=== PATIENT | male | born 1965 | race Hispanic/Latino ===

== ENCOUNTER 2017-12-11 18:24 | Inpatient (IN) | payer MEDICARE, MEDICAID ==
--- NOTE | 2017-12-11 18:33 | ED PDOC ---
Psych Transfer Clearance - Clearance Statement Clearance Statement: Reviewed vital signs, lab results and transfer papers. Patient clinically stable for psychiatric admission.
[2017-12-11 18:44] VITALS: O2SAT 97
[2017-12-11] MEDS ORDERED: Magnesium Hydroxide Susp 30 ml UD PO PRN (19:43)
[2017-12-11] MEDS ORDERED: DiphenhydrAMINE 50 mg/ml Inj IM PRN (19:43)
[2017-12-11] MEDS ORDERED: Alum-Mag Hydrox-Simethicone Susp (30 mL) PO PRN (19:43)
--- NOTE | 2017-12-11 20:22 | PCM.BM ---
<Frank Gordon - Last Filed: 12/11/17 20:19> Treatment Plan Problems - Problems identified on initial assessmt Auditory Hallucinations Date Initiated: 12/11/17 Time Initiated: 20:19 Assessment reference: NA Status: Active Altered Thought Process Date Initiated: 12/11/17 Time Initiated: 20:20 Assessment reference: NA Status: Active Ineffective Coping Date Initiated: 12/11/17 Time Initiated: 20:20 Assessment reference: NA Status: Active Anxiety Date Initiated: 12/11/17 Time Initiated: 20:21 Assessment reference: NA Status: Active Treatment assets and liabiliti Patient Assests: cooperative, good support system, negotiates basic needs Patient Liabilities: medical problems - Milieu Protocol Maintain good personal hygiene: every shift Encourage regular showers, every shift Remind patient to perform daily oral care, every shift Assist patient to perform ADL's Maintain personal safety: daily Educate patient to report safety concerns to staff, daily Monitor environment for contraband/sharps Medication safety: Monitor for expected outcome, potential side effects: daily, Assess barriers to learning: daily, Assess readiness for medication education: daily <Lina Merrill - Last Filed: 12/12/17 10:23> - Diagnosis (1) Schizophrenia Status: Acute Interventions: Medication management, Individual and group therapy, Psychoeducation 12/12/17 10:24 <Viola De León - Last Filed: 12/13/17 11:57> Family Contact Family contact: Patient agrees to contact, Family has been contacted by patient , Telephone contact initiated by staff Family contact name: Koko Mansfield - cousin Family contacted how many times per week?: 2 - Outside Agency [facility], [facility] Care involvment: Information-sharing Agency contact name: Dr. Magali MD - psychiatrist. Catherine- RN Agency contact number: [phone] - Goals for Treatment Patient goals for treatment: Pt to be encouraged to attend activity and clinical groups 3-5x per week to decrease symptoms of paranoia, delusions and employ reality testing. Pt to be encouraged to participate in group milieu to develop coping skills to reduce psychiatric hospitalizations and further decompensation. Coordinate discharge resources needs by providing referral for psychiatric treatment follow up in the community. Discharge/Continuing Care - Education Needs Education Needs: Family Medication, Family Diagnosis/Disease Process, Family Coping Skills, Family Placement options, Family Activities of Daily Living, Family Health Practices/Safety, Family Personal Hygiene/Grooming, Family Aftercare Safety Plan, Patient Medication, Patient Diagnosis/Disease Process, Patient Coping Skills, Patient Placement options, Patient Activities of Daily Living, Patient Health Practices/Safety, Patient Personal Hygiene/Grooming, Patient Aftercare Safety Plan - Discharge Discharge Criteria: Tolerates medication w/o severe side effects, Free of paranoid thoughts, Normal sleep pattern, Ability to care for self, Reduction of target symptoms Discharge to:: Detention Facility - Additional Comments 12/13/17 11:49 Pt seen and discussed in team meeting. Reason for admission reviewed and discussed. Pt provided a brief explanation as to why he was referred to [facility] for evaluation. Pt reported reason for ED visit as "i was bleeding form my rectum." Pt continued to state "something bad inside me" and "someone really f me up." Pt unable to explain what was inside him and why someone was trying to hurt him. Pt presented with thought blocking, poverty of speech and delayed responses. Pt reported that the auditory hallucinations are ' slightly better." Pt refused to state what he was hearing. Pt's social and medical issues reviewed. Pt's medications reviewed and discussed. Pt is agreeable to Risperdal being increased. Please refer to MD progress note for additional information. Tx plan reviewed and discussed. Pt verbalized agreement. SW to continue to follow case.
[2017-12-12 02:48] LABS: SQUAMOUS EPITHIAL < 1 /hpf (0-5); URINE BACTERIA RARE (<OCC); URINE BILIRUBIN NEGATIVE (NEGATIVE); URINE BLOOD MODERATE (NEGATIVE); URINE CLARITY CLEAR (Clear); URINE COLOR STRAW (YELLOW); URINE GLUCOSE (UA) NEG (Normal); URINE LEUKOCYTE ESTERASE NEG Leu/uL (Negative); URINE PROTEIN NEGATIVE (NEGATIVE); URINE UROBILINOGEN 0.2-1.0 mg/dL (0.2-1.0)
[2017-12-12 06:01] LABS: BASO # 0.1 K/uL (0.0-0.2); BASO % 0.6 % (0.0-2.0); EOS # 0.2 K/uL (0.0-0.7); EOS % 1.5 % (0.0-4.0); HEMOGLOBIN 11.8 g/dL (12.0-18.0); LYMPH # 3.1 K/uL (1.0-4.3); MEAN CELL VOLUME 92.2 fl (80.0-94.0); MEAN CORPUSCULAR HEMOGLOBIN 31.3 pg (27.0-31.0); MEAN CORPUSCULAR HGB CONC 33.9 g/dL (33.0-37.0); MEAN PLATELET VOLUME 7.4 fl (7.2-11.7); MONO % 8.9 % (0.0-10.0); NEUT # 7.2 K/uL (1.8-7.0); RBC 3.76 Mil/uL (4.40-5.90); RED CELL DISTRIBUTION WIDTH 14.8 % (11.5-14.5); WHITE BLOOD COUNT 11.6 K/uL (4.8-10.8)
[2017-12-12 06:14] LABS: ALB/GLOB RATIO 1.5 (1.0-2.1); ALT/SGPT 35 U/L (21-72); AST/SGOT 25 U/L (17-59); BLOOD UREA NITROGEN 23 mg/dl (9-20); CALCIUM 9.3 mg/dL (8.4-10.2); GFR NON-AFRICAN AMERICAN 53; HDL CHOLESTEROL 30 MG/DL (30-70)
[2017-12-12 06:22] LABS: T4 6.66 ug/dl (5.5-11.0)
[2017-12-12 06:25] LABS: LDL CHOLESTEROL 92 mg/dL (0-129)
--- NOTE | 2017-12-12 08:26 | PCM.PSYCH ---
Initial Psychiatric Evaluation - Initial Psychiatric Evaluation Type of Admission: Voluntary Legal Status: Capacity Chief Complaint (in patient's own words): Paranoia/ Auditory Hallucinations Patient's Reaction to Hospitalization: HPI: 52 yo male w/ h/o schizophrenia, presents w/ worsening paranoia and auditory hallucinations. +Anxiety +Sleep/appetite disturbances +Mood lability. NO SI/HI. PPHx: H/o of multiple psychiatric admissions; current treatment w/ Risperdal 3 mg PO BID; Trazodone 50 mg PO HS; Klonopin 1 mg PO TID PMHx: Bowel obstruction s/p exploratory laparotomy 07/07, rhabdomyolysis w/ renal failure and temporary dialysis discontinued 09/06 ALL: Fish, Seafood SHx: Smokes 1ppd; lives at [facility], no drugs/etoh Current Medications: Active Medications Generic Name Dose Route Start Last Admin Trade Name Freq PRN Reason Stop Dose Admin Acetaminophen 650 mg 12/11/17 19:43 12/12/17 00:38 Tylenol 325mg Tab PO 650 mg Q4 PRN Administration Pain, moderate (4-7) Al Hydrox/Mg Hydrox/Simethicone 30 ml 12/11/17 19:43 Maalox Plus 30 Ml PO Q4 PRN Dyspepsia Amlodipine Besylate 5 mg 12/12/17 09:00 Norvasc PO DAILY WILBERTO Aspirin 81 mg 12/12/17 09:00 Aspirin Chewable PO DAILY WILBERTO Diphenhydramine HCl 50 mg 12/11/17 19:43 Benadryl IM Q6 PRN Extrapyramidal S/S Unable PO Diphenhydramine HCl 50 mg 12/11/17 19:43 Benadryl PO Q6 PRN Extrapyramidal Symptoms Diphenhydramine HCl 50 mg 12/11/17 19:48 12/11/17 21:14 Benadryl PO 50 mg HS PRN Administration Sleep Haloperidol 5 mg 12/11/17 19:43 Haldol PO Q4 PRN Agitation Haloperidol Lactate 5 mg 12/11/17 19:43 Haldol IM Q4 PRN Agitation, Unable to Take PO Home Med 15 ml 12/12/17 09:00 Chlorhexidine Gluconate [Peridex] PO BID WILBERTO Lorazepam 1 mg 12/11/17 19:43 12/11/17 22:24 Ativan PO 1 mg Q8 PRN Administration Anxiety/Agitation Magnesium Hydroxide 30 ml 12/11/17 19:43 Milk Of Magnesia PO HS PRN Constipation Metoprolol Succinate 50 mg 12/12/17 09:00 Toprol Xl PO DAILY [facility] Montelukast Sodium 10 mg 12/12/17 09:00 Singulair PO DAILY [facility] Polyethylene Glycol 17 gm 12/12/17 22:00 Miralax PO HS [facility] Past Psychiatric History - Past Psychiatric History Previous Treatment History: Inpatient Pertinent Medical Hx (Current Medical&Sleep Prob, Allergies): Allergies Allergy/AdvReac Type Severity Reaction Status Date / Time FISH Allergy URTICARIA Verified 12/11/17 18:26 seafood Allergy URTICARIA Uncoded 12/11/17 18:26 Albuterol/Ipratropium [Duoneb 3 mg/0.5 mg (3 ml) UD] 3 mg PO BID 12/11/17 Aspirin [Aspirin Chewable] 81 mg PO DAILY 12/11/17 Chlorhexidine Gluconate [Peridex] 15 ml PO BID 12/11/17 Gabapentin [Neurontin] 600 mg PO HS 12/11/17 Metoprolol Succinate XL [Toprol XL] 50 mg PO DAILY 12/11/17 Montelukast Sodium [Singulair] 10 mg PO DAILY 12/11/17 Polyethylene Glycol 3350 [Miralax] 17 gm PO HS 12/11/17 amLODIPine [Norvasc] 5 mg PO DAILY 12/11/17 clonazePAM [clonAZEPAM] 1 mg PO TID 12/11/17 risperiDONE [RisperDAL] 3 mg PO BID 12/11/17 traZODone [Desyrel] 50 mg PO HS PRN 12/11/17 Review of Systems - Psychiatric Psychiatric: Abnormal Sleep Pattern, Anxiety, Auditory Hallucinations, Behavioral Changes, Change in Appetite, Difficulty Concentrating, Irritability, Paranoia Mental Status Examination - Personal Presentation Personal Presentation: Looks stated age - Affect Affect: Constricted - Motor Activity Motor Activity: Calm - Reliability in Providing Information Reliability in Providing Information: Poor, due to alteration in thoughts - Speech Speech: Coherent - Mood Mood: Anxious - Formal Thought Process Formal Thought Process: Hallucinations, Paranoia - Hallucinations/Delusions Hallucinations: Auditory - Obsessions/Compulsions Obsessions: No Compulsions: No - Cognitive Functions Orientation: Person, Place, Situation, Time Sensorium: Alert Judgement: Intact, as evidence by: Insight regarding need for hospitalization Memory: Recent impaired, as evidence by: Inability to recall events of the day, Recent imparied as evidence by:Inability to complete 3/3 object recall - Risk Risk: Diminished functioning - Strength & Assets Inventory Strength & Assets Inventory: Cooperative - Limitations Limitations: Decreased memory, recent DSM 5 DX - DSM 5 DSM 5 Diagnosis: Schizophrenia - Recommended/Plan of Treatment Treatment Recommendations and Plan of Treatment: Schizophrenia -Admit to psychiatry unit -Individual and group therapy -Psychoeducation -Increase Risperdal -Continue Klonopin and Trazodone -Nicotine patch -Medicine consulte -Disposition planning Projected ELOS: 5-10 days Discharge Plan and Discharge Criteria: Discharge when patient is psychiatrically stable - Smoking Cessation Smoking Cessation Initiated: Yes
[2017-12-12] MEDS: Metoprolol Succinate 50 mg XL Tab PO SCH (08:57)
[2017-12-12] MEDS ORDERED: CHLORHEXIDINE GLUCONATE PO SCH (09:00)
[2017-12-12] MEDS: POLYETHYLENE GLYCOL 3350 17 GM/Dose PACKET PO SCH (21:17)
--- NOTE | 2017-12-13 08:06 | PCM.PYCHPN ---
Psychiatric Progress Note - Psychiatric Progress Note Patient seen today, length of contact: Patient evaluated, case discussed w/ team , chart reviewed Patient Chief Complaint: "I'm hearing voices." Problems Identified/Issues Discussed: Patient continues to report feeling paranoid, suspicious, anxious and experiencing AH. He states that he has poor sleep at night. We discussed titration of Trazodone and Risperdal. No adverse effects to medications reported. Medication Change: Yes (Increase Trazodone, Increase Risperdal) Medical Record Reviewed: Yes Consults ordered or reviewed: Medicine consult Mental Status Examination - Cognitive Function Orientation: Person, Place, Situation, Time Memory: Intact Attention: Poor Concentration: Poor Association: Loose Decription of patient's judgement and insights: Improving I/J - Mood Mood: Anxious - Affect Affect: Blunted - Speech Speech: Soft - Formal Thought Process Formal Thought Process: Hallucinations, Paranoia Psychotic Thoughts and Behaviors: +AH/paranoia - Suicidal Ideation Suicidal Ideation: No - Homicidal Ideation Homicidal Ideation: No Goal/Treatment Plan - Goal/Treatment Plan Need for Continued Stay: Remain at risks for inpatient hospitalization, Discharge may exacerbated symptoms Progress Toward Problem(s) and Goals/Treatment Plan: Schizophrenia -Individual and group therapy -Psychoeducation -Increase Risperdal to 4 mg PO Q12 -Continue Klonopin 1 mg PO TID -Increase Trazodone to 100 mg PO HS -Nicotine patch -Medicine consult -Disposition planning Estimated Date of D/C: 12/17/17
[2017-12-13] MEDS: Metoprolol Succinate 50 mg XL Tab PO SCH (08:27)
[2017-12-13] MEDS: Bisacodyl 5mg EC Tab PO PRN (18:04)
[2017-12-13] MEDS: POLYETHYLENE GLYCOL 3350 17 GM/Dose PACKET PO SCH (21:10)
[2017-12-14] MEDS: Metoprolol Succinate 50 mg XL Tab PO SCH (08:55)
--- NOTE | 2017-12-14 10:20 | PCM.PYCHPN ---
Psychiatric Progress Note - Psychiatric Progress Note Patient seen today, length of contact: Patient evaluated, case discussed w/ team , chart reviewed Patient Chief Complaint: pt has remained very anxious and paranoid and still hearing voices and noises and cant sleep at bedtime. Medication Change: Yes (Increase Trazodone, Increase Risperdal) Medical Record Reviewed: Yes Mental Status Examination - Cognitive Function Orientation: Person, Place, Situation, Time Memory: Intact Attention: Poor Concentration: Poor Association: Loose - Mood Mood: Anxious - Affect Affect: Blunted - Speech Speech: Soft - Formal Thought Process Formal Thought Process: Hallucinations, Paranoia - Suicidal Ideation Suicidal Ideation: No - Homicidal Ideation Homicidal Ideation: No Goal/Treatment Plan - Goal/Treatment Plan Need for Continued Stay: Remain at risks for inpatient hospitalization, Discharge may exacerbated symptoms Progress Toward Problem(s) and Goals/Treatment Plan: will continue to stabilize psychosis with risperdal recently increased to 4 mg bid. will engage in therapy,. disposition as per dr perea. Estimated Date of D/C: 12/17/17
[2017-12-14] MEDS: POLYETHYLENE GLYCOL 3350 17 GM/Dose PACKET PO SCH (21:00)
[2017-12-15] MEDS: Metoprolol Succinate 50 mg XL Tab PO SCH (08:53)
[2017-12-15] MEDS: POLYETHYLENE GLYCOL 3350 17 GM/Dose PACKET PO SCH (21:14)
[2017-12-16] MEDS: Metoprolol Succinate 50 mg XL Tab PO SCH (08:11)
--- NOTE | 2017-12-16 09:35 | PCM.PYCHPN ---
Psychiatric Progress Note - Psychiatric Progress Note Patient seen today, length of contact: Patient evaluated, case discussed w/ team , chart reviewed Patient Chief Complaint: "I'm hearing voices." Problems Identified/Issues Discussed: Patient continues to report hearing auditory hallucinations. When asked what they say, patient looks around the room and then refuses to answer the question. He continues to be paranoid, suspicious and anxious due to acute psychosis. He also reports seeing "nightmares", during the day; when asked to explain further he described them as if he were seeing horrifying scenes in front of him; unclear if he is experiencing VH. Patient was not able to explain what the "nightmares" are, but discussed that he finds them distressing. No adverse effects to medications reported. Medication Change: No Medical Record Reviewed: Yes Consults ordered or reviewed: Medicine consult Mental Status Examination - Cognitive Function Orientation: Person, Place, Situation, Time Memory: Intact Attention: Poor Concentration: Poor Association: Loose Decription of patient's judgement and insights: Poor I/ fair J - Mood Mood: Anxious - Affect Affect: Blunted - Speech Speech: Soft - Formal Thought Process Formal Thought Process: Hallucinations, Paranoia, Other (Poverty of speech) Psychotic Thoughts and Behaviors: +AH; possible VH - Suicidal Ideation Suicidal Ideation: No - Homicidal Ideation Homicidal Ideation: No Goal/Treatment Plan - Goal/Treatment Plan Need for Continued Stay: Remain at risks for inpatient hospitalization, Discharge may exacerbated symptoms Progress Toward Problem(s) and Goals/Treatment Plan: Schizophrenia -Individual and group therapy -Psychoeducation -Continue Risperdal 4 mg PO Q12; will continue to monitor if additional antipsychotic is needed if psychotic symptoms don't improve -Continue Klonopin 1 mg PO TID -Continue Trazodone 100 mg PO HS -Nicotine patch -Medicine consult -Disposition planning Estimated Date of D/C: 12/18/17
[2017-12-16] MEDS: POLYETHYLENE GLYCOL 3350 17 GM/Dose PACKET PO SCH (21:02)
[2017-12-17] MEDS: Metoprolol Succinate 50 mg XL Tab PO SCH (08:21)
--- NOTE | 2017-12-17 09:59 | PCM.PYCHPN ---
Psychiatric Progress Note - Psychiatric Progress Note Patient seen today, length of contact: Patient evaluated, case discussed w/ team , chart reviewed Patient Chief Complaint: "I'm hearing voices." Problems Identified/Issues Discussed: Patient continues to hear auditory hallucinations, stating negative things to him, which he describes as "distorted." He denies CAH/VH/SI/HI. Patient reports that he has a history of being treated w/ more than one antipsychotic at once, due to h/o non-response to monotherapy. We discussed starting Seroquel. No adverse effects to medications reported. Medication Change: Yes (Start Seroquel 50 mg PO HS) Medical Record Reviewed: Yes Consults ordered or reviewed: Medicine consult Mental Status Examination - Cognitive Function Orientation: Person, Place, Situation, Time Memory: Intact Attention: Poor Concentration: Poor Association: Loose Decription of patient's judgement and insights: Poor I/ fair J - Mood Mood: Anxious - Affect Affect: Blunted - Speech Speech: Soft - Formal Thought Process Formal Thought Process: Hallucinations, Paranoia, Other (Poverty of speech) Psychotic Thoughts and Behaviors: +AH; possible VH - Suicidal Ideation Suicidal Ideation: No - Homicidal Ideation Homicidal Ideation: No Goal/Treatment Plan - Goal/Treatment Plan Need for Continued Stay: Remain at risks for inpatient hospitalization, Discharge may exacerbated symptoms Progress Toward Problem(s) and Goals/Treatment Plan: Schizophrenia -Individual and group therapy -Psychoeducation -Continue Risperdal 4 mg PO Q12 -Start Seroquel 50 mg PO HS -Continue Klonopin 1 mg PO TID -Continue Trazodone 100 mg PO HS -Nicotine patch -Medicine consult -Disposition planning Estimated Date of D/C: 12/19/17
[2017-12-17] MEDS: Bisacodyl 5mg EC Tab PO PRN (14:24)
[2017-12-17] MEDS: POLYETHYLENE GLYCOL 3350 17 GM/Dose PACKET PO SCH (21:13)
[2017-12-18] MEDS: Bisacodyl 5mg EC Tab PO PRN (08:20)
[2017-12-18] MEDS: Metoprolol Succinate 50 mg XL Tab PO SCH (08:22)
--- NOTE | 2017-12-18 09:53 | PCM.PYCHPN ---
Psychiatric Progress Note - Psychiatric Progress Note Patient seen today, length of contact: Patient evaluated, case discussed w/ team , chart reviewed Patient Chief Complaint: "I'm getting better." Problems Identified/Issues Discussed: Patient reports that he is not hearing voices today. Patient states that he was on clozaril in the past, but is not agreeable to retaking clozaril because it caused severe constipation and he believes it caused him to have a bowel obstruction in the past. He is more goal oriented. He denies current adverse effects to medications. Patient is agreeable to taking Risperdal Consta and we discussed that he would be transitioned off oral Risperdal after his second dose of the Risperdal Consta in two weeks. Medication Change: Yes (Risperdal Consta 50 mg IM; Increase Seroquel to 100 mg PO HS) Medical Record Reviewed: Yes Consults ordered or reviewed: Medicine consult Mental Status Examination - Cognitive Function Orientation: Person, Place, Situation, Time Memory: Intact Attention: Poor Concentration: Poor Association: WNL Fund of Knowledge: WNL Decription of patient's judgement and insights: Fair I/J - Mood Mood: Neutral - Affect Affect: Constricted - Speech Speech: Soft - Formal Thought Process Formal Thought Process: Other (Poverty of speech) Psychotic Thoughts and Behaviors: Denies acute AH - Suicidal Ideation Suicidal Ideation: No - Homicidal Ideation Homicidal Ideation: No Goal/Treatment Plan - Goal/Treatment Plan Need for Continued Stay: Remain at risks for inpatient hospitalization, Discharge may exacerbated symptoms Progress Toward Problem(s) and Goals/Treatment Plan: Schizophrenia -Individual and group therapy -Psychoeducation -Risperdal Consta 50 mg IM on 12/18/17; continue Risperdal 4 mg PO Q12 until 12/31; next Risperdal Consta 50 mg IM due on 01/01/18 -Seroquel 100 mg PO HS -Klonopin 1 mg PO TID -Trazodone 100 mg PO HS -Nicotine patch -Medicine consult -Disposition planning Estimated Date of D/C: 12/19/17 - Smoking Cessation Smoking Cessation Initiated: Yes
[2017-12-18] MEDS: POLYETHYLENE GLYCOL 3350 17 GM/Dose PACKET PO SCH (21:10)
[2017-12-19 06:39] VITALS: BP 127/82; PULSE 82; RESP 18; TEMP 97.1
--- NOTE | 2017-12-19 09:00 | PCM.PYCHDC ---
Mental Status Examination - Mental Status Examination Orientation: Person, Place, Situation, Time Memory: Intact Mood: Neutral Affect: Constricted Speech: Appropriate Attention: WNL Concentration: WNL Association: WNL Fund of Knowledge: WNL Formal Thought Process: No Impairment Description of patient's judgement and insight: Fair I/J Psychotic Thoughts and Behaviors: NO AH/VH/paranoia/delusions Suicidal Ideation: No Current Homicidal Ideation?: No Discharge Summary - Discharge Note Reason for Hospitalization: HPI: 52 yo male w/ h/o schizophrenia, presents w/ worsening paranoia and auditory hallucinations. +Anxiety +Sleep/appetite disturbances +Mood lability. NO SI/HI. PPHx: H/o of multiple psychiatric admissions; current treatment w/ Risperdal 3 mg PO BID; Trazodone 50 mg PO HS; Klonopin 1 mg PO TID PMHx: Bowel obstruction s/p exploratory laparotomy 07/07, rhabdomyolysis w/ renal failure and temporary dialysis discontinued 09/06 ALL: Fish, Seafood SHx: Smokes 1ppd; lives at [facility], no drugs/etoh Consultations:: List each consultation separately and include: 1. Reason for request. 2. Findings. 3. Follow-up Consultations: Medicine consult Summary of Hospital Course include:: 1. Description of specific treatment plan utilized for patients during their course of treatmen. 2. Summarize the time- course for resolution of acute symptoms and/or regressed behaviors. 3. Describe issues identified and worked on during hospitalization. 4. Describe medication utilized. 5. Describe medical problems identified and treated. 6. Reassessment of suicide risk Summary of Hospital Course: Patient was admitted to the psychiatry unit. Individual and group therapy were provided. Patient was stabilized on Risperdal, Seroquel, Klonopin and Trazodone. He denies current AH/VH/SI/HI/paranoia/delusions. He is psychiatrically stable for discharge at this time. - Diagnosis (1) Schizophrenia Current Visit: Yes Status: Acute - Final Diagnosis (DSM 5) Condition upon Discharge: STABLE DSM 5: Schizophrenia Disposition: HOME/ ROUTINE Follow-up Treatment Plan: Schizophrenia -Individual and group therapy -Psychoeducation -Risperdal Consta 50 mg IM given on 12/18/17; continue Risperdal 4 mg PO Q12 until 12/31/17, then stop oral Risperdal; next Risperdal Consta 50 mg IM due on -Seroquel 100 mg PO HS -Klonopin 1 mg PO TID -Trazodone 100 mg PO HS -Nicotine patch during admission; patient declined outpatient prescription -Medicine consult Prescriptions/Medication Reconciliation: risperiDONE [RISPERDAL Consta Inj] 50 mg IM Q2W #1 inj - Smoking Cessation Smoking Cessation Medication prescribed: Yes Reason for not providing: Nicotine patch during admission; declined outpatient prescription - Antipsychotic Medications Pt discharged on 2 or more routine antipsychotic medications: Yes - Justification for 2 or more meds Failed 3 or more trials of Monotherapy: List medications: Patient has failed trials of monotherapy and continued to have psychotic symptoms w/ the maximum of monotherapy (Risperdal). He also has a history of treatment w/ Clozaril in the past, but does not want to restart Clozaril due to adverse effects.
[2017-12-19] MEDS: Metoprolol Succinate 50 mg XL Tab PO SCH (09:14)
== END 2017-12-19 13:00 | DRG 885 ==
LOC: H.ER 18:24 → H.STEP 18:32
PROVIDERS: ADMIT Psychiatry & Neurology Psychiatry; ATTEND Psychiatry & Neurology Psychiatry
PROC: GZHZZZZ Group Psychotherapy (ICD-10-PCS; principal; 2017-12-11)
PROC: GZ58ZZZ Individual Psychotherapy, Cognitive-Behavioral (ICD-10-PCS; 2017-12-11)
DX: F20.9 Schizophrenia, unspecified (principal); F41.9 Anxiety disorder, unspecified; F17.210 Nicotine dependence, cigarettes, uncomplicated; Z91.013 Allergy to seafood